=== PATIENT | male | born 1955 | race Caucasian/White ===

== ENCOUNTER 2018-03-21 10:18 | Emergency (ER) | payer OTHER ==
[~2018-03-21] VITALS: Ht 172.7 cm; Wt 91.0 kg
[~2018-03-21 10:18] MED LIST: VITA400C15 PO
[2018-03-21 10:23] VITALS: Ht 172.7 cm; Wt 91.0 kg
[2018-03-21] MEDS ORDERED: SODIUM CHLORIDE 0.9% 500ML 500 ML IV STA (10:38)
[2018-03-21] MEDS ORDERED: ONDANSETRON INJ 2 MG/ML 2 ML VIAL IV STA (10:38)
[2018-03-21] MEDS ORDERED: DiphenhydrAMINE HCL 50 MG/ML VIAL IV STA (10:38)
[2018-03-21] MEDS ORDERED: METHYLPREDNISOLONE 125 MG VIAL IV STA (10:38)
[2018-03-21] MEDS ORDERED: ACETAMINOPHEN 500 MG TAB PO STA (10:38)
[2018-03-21] MEDS ORDERED: MoRPHine SULFATE 10 MG/ML CARP/VIAL IV PRN (10:45)
[2018-03-21 11:10] LABS: BASO % 0.2 %; BASO ABS # 0.02 K/uL (0-0.2); EOS % 0.8 %; EOS ABS # 0.08 K/uL (0-0.5); HEMATOCRIT 42.9 % (42-52); HEMOGLOBIN 15.2 g/dL (14.0-18.0); IG# 0.02 K/uL (0.00-0.02); LYMPH % 20.2 %; LYMPH ABS # 2.05 K/uL (1.2-3.4); MEAN CORPUSCULAR HEMOGLOBIN 30.1 pg (25-34); MEAN CORPUSCULAR HGB CONC 35.4 g/dl (32-36); MONO % 11.9 %; MONO ABS # 1.21 K/uL (0.11-0.59); NEUT % 66.7 %; NEUT ABS # 6.75 K/uL (1.4-6.5); PLATELET COUNT 236 K/uL (130-400); RED CELL DISTRIBUTION WIDTH CV 12.1 % (11.5-14.5); WHITE BLOOD COUNT 10.13 K/uL (4.8-10.8)
[2018-03-21 11:45] LABS: CALCIUM 9.2 mg/dl (8.5-10.1); CREATININE 0.96 mg/dl (0.60-1.40); POTASSIUM 3.7 mmol/L (3.5-5.1)
--- NOTE | 2018-03-21 11:47 | DIAGNOSTIC IMAGING REPORT ---
ORBITS FOR MRI HISTORY: Pre-MRI pre-MRI screening. COMPARISON: None. FINDINGS: There are no radiopaque foreign bodies identified within the orbits. Moderate mucosal thickening of the right maxillary sinuses IMPRESSION: No radiopaque foreign bodies identified within the orbits. The above report was generated using voice recognition software. It may contain grammatical, syntax or spelling errors. Electronically signed by: Nikhil Duron M.D. 03/21/2018 11:46 AM Dictated Date/Time: 03/21/2018 11:46 AM
--- NOTE | 2018-03-21 12:12 | EMERGENCY ROOM VISIT NOTE ---
History Report prepared by Shyla: Serg Sawant Under the Supervision of: Dr. Mark Marinelli M.D. First contact with patient: 10:27 Chief Complaint: BACK PAIN Stated Complaint: BACK AND LEG PAIN History of Present Illness The patient is a 62 year old male who presents to the Emergency Room with complaints of constant, severe, lower back pain beginning a week ago. He currently rates his discomfort an 8/10 in severity. The patient states his pain radiates to his groin and is present on both sides. He reports it feels like a knife is going into his left buttock. The patient notes any type of movement greatly intensifies his discomfort to a 10/10. He states his discomfort alternates from leg to leg when he walks. The patient reports he cannot lay in one spot for more than 15 minutes. He notes when he coughs he can feel his discomfort in his back and groin. The patient reports he tried taking an 800mg ibuprofen that did not help. The patient states he has a history of a blown disk several years ago, and he did not have surgery. He reports he was given several steroid shots. 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 The patient reports he has had a cold for about 1.5 weeks. He denies urinary symptoms, diarrhea, fevers, chills, trouble moving his bowels, rash, and known tick bites. The patient does not have a PCP because he is in the process of switching insurances. Source of History: patient Onset: week ago Position: back (lower) Symptom Intensity: severe Timing: constant Modifying Factors (Worsening): movement, other (lying still for a long time) Associated Symptoms: No fevers, No chills, No diarrhea, No urinary symptoms Note: Associated symptoms: groin pain Denies: trouble moving his bowels, known tick bites Review of Systems See HPI for pertinent positives & negatives. A total of 10 systems reviewed and were otherwise negative. Past Medical & Surgical Surgical Problems: (1) History of cholecystectomy Family History Diabetes mellitus FH: heart disease FHx: gallbladder disease Hypertension Social History Smoking Status: Never Smoker Alcohol Use: none Marital Status: Housing Status: lives with family Occupation Status: employed Current/Historical Medications Scheduled Prednisone (Prednisone), 2 TAB PO DAILY Scheduled PRN Ibuprofen (Motrin), 800 MG PO Q8H PRN for Pain Oxycodone Ir (Roxicodone Ir), 1-2 TAB PO Q4H PRN for Pain Allergies Coded Allergies: Iodinated Diagnostic Agents (Unverified Adverse Reaction, Intermediate, HIVES, 03/21/18) Physical Exam Vital Signs Date Time Temp Pulse Resp B/P (MAP) Pulse Ox O2 Delivery O2 Flow Rate FiO2 03/21/18 14:04 69 18 105/59 96 Room Air 03/21/18 12:52 36.9 03/21/18 12:22 78 18 163/79 99 Room Air 03/21/18 11:07 86 03/21/18 10:23 37.9 97 18 145/74 96 Room Air Physical Exam GENERAL: Patient is in no acute distress. HEENT: No acute trauma, normocephalic atraumatic, mucous membranes moist, no nasal congestion, no scleral icterus. NECK: No stridor, no adenopathy, no meningismus, trachea is midline. LUNGS: Clear to auscultation bilaterally, no wheeze, no rhonchi, breath sounds equal. HEART: Without murmurs gallops or rubs, regular rate and rhythm. BACK: Mildly tenderness to the upper lumbar spine upon palpation. No rash. No step-off. ABDOMEN: Soft, nontender, bowel sounds positive, no hernias, no peritonitis. : No scrotal cellulitis or edema. EXTREMITIES: No cyanosis or edema, full range of motion of all the joints without pain or difficulty, no signs for acute trauma. NEUROLOGIC: Oriented x 3, no acute motor or sensory deficits, no focal weakness. 2/4 patellar and Achilles reflexes bilaterally. SKIN: No rash, no jaundice, no diaphoresis. Medical Decision & Procedures ER Provider Diagnostic Interpretation: Radiology results as stated below per my review and radiologist interpretation: LUMBAR SPINE W/O CONTRAST HISTORY: Pain. Neuropathy. Back pain TECHNIQUE: Multiplanar multisequence MRI of the lumbar spine was performed without the use of contrast. COMPARISON: None. FINDINGS: For the purpose of the report the L5-S1 disc space will be located on axial image 23 of 25. Considerable degenerative change throughout the entire lumbar region. Posterior bulging disc components based on the sagittal images from L1 through L4. Signal characteristics of the vertebral bodies are unremarkable. No evidence for compression deformity. L1-L2: Mild broad-based disc herniation. Mild impact anterior thecal sac. Neural foramina show only minimal narrowing. L2-L3: Mild broad-based disc herniation. Mild impact right anterior aspect thecal sac. Moderate narrowing right neuroforamina. Minimal narrowing left neural foramina. L3-L4: Mild broad-based disc herniation. Moderate impact anterior thecal sac. Moderate narrowing of the neuroforamina bilaterally. L4-L5: Broad-based central bulging disc with minimal impact anterior thecal sac. Moderate osteophytic narrowing right neuroforamina. L5-S1: No significant central canal or neural foraminal narrowing. IMPRESSION: 1. Considerable degenerative disc change throughout the entire lumbar region. 2. Broad-based disc herniations from L1 through L4 with minimal to mild impact upon the anterior thecal sac at all levels. 2. No major component of spinal stenosis. 3. Moderate narrowing of several neural foramina bilaterally. 4. No evidence for compression deformity. The above report was generated using voice recognition software. It may contain grammatical, syntax or spelling errors. Electronically signed by: Nikhil Duron M.D. 03/21/2018 12:28 PM Dictated Date/Time: 03/21/2018 12:24 PM ORBITS FOR MRI HISTORY: Pre-MRI pre-MRI screening. COMPARISON: None. FINDINGS: There are no radiopaque foreign bodies identified within the orbits. Moderate mucosal thickening of the right maxillary sinuses IMPRESSION: No radiopaque foreign bodies identified within the orbits. The above report was generated using voice recognition software. It may contain grammatical, syntax or spelling errors. Electronically signed by: Nikhil Duron M.D. 03/21/2018 11:46 AM Dictated Date/Time: 03/21/2018 11:46 AM ABD/PELVIS NO IV OR ORAL CONT CT DOSE: 651.75 mGy.cm HISTORY: Pain ABD PAIN, POSSIBLE OBSTRUCTION, NO CONTRAST TECHNIQUE: Multiaxial CT images of the abdomen and pelvis were performed without contrast. A dose lowering technique was utilized adhering to the principles of ALARA. COMPARISON STUDY: None. FINDINGS: Lung bases are clear. Liver spleen and pancreas are unremarkable. Prior cholecystectomy. Kidneys negative for calcification or hydronephrosis. Bowel pattern is nonobstructive. There is a normal amount of fecal material throughout the colon. No evidence for free air or pneumatosis. Bladder is midline. Normal appendix. IMPRESSION: No significant abnormality identified within the abdomen or pelvis. Prior cholecystectomy. No evidence for obstruction. The above report was generated using voice recognition software. It may contain grammatical, syntax or spelling errors. Electronically signed by: Nikhil Duron M.D. 03/21/2018 1:30 PM Dictated Date/Time: 03/21/2018 1:24 PM Laboratory Results 03/21/18 10:50 Red Blood Count 5.05, Mean Corpuscular Volume 85.0, Mean Corpuscular Hemoglobin 30.1, Mean Corpuscular Hemoglobin Concent 35.4, Mean Platelet Volume 10.0, Neutrophils (%) (Auto) 66.7, Lymphocytes (%) (Auto) 20.2, Monocytes (%) (Auto) 11.9, Eosinophils (%) (Auto) 0.8, Basophils (%) (Auto) 0.2, Neutrophils # (Auto ) 6.75, Lymphocytes # (Auto) 2.05, Monocytes # (Auto) 1.21, Eosinophils # (Auto ) 0.08, Basophils # (Auto) 0.02 03/21/18 10:50 Test 03/21/18 10:50 03/21/18 12:54 White Blood Count 10.13 K/uL (4.8-10.8) Red Blood Count 5.05 M/uL (4.7-6.1) Hemoglobin 15.2 g/dL (14.0-18.0) Hematocrit 42.9 % (42-52) Mean Corpuscular Volume 85.0 fL (80-100) Mean Corpuscular Hemoglobin 30.1 pg (25-34) Mean Corpuscular Hemoglobin Concent 35.4 g/dl (32-36) Platelet Count 236 K/uL (130-400) Mean Platelet Volume 10.0 fL (7.4-10.4) Neutrophils (%) (Auto) 66.7 % Lymphocytes (%) (Auto) 20.2 % Monocytes (%) (Auto) 11.9 % Eosinophils (%) (Auto) 0.8 % Basophils (%) (Auto) 0.2 % Neutrophils # (Auto) 6.75 K/uL (1.4-6.5) Lymphocytes # (Auto) 2.05 K/uL (1.2-3.4) Monocytes # (Auto) 1.21 K/uL (0.11-0.59) Eosinophils # (Auto) 0.08 K/uL (0-0.5) Basophils # (Auto) 0.02 K/uL (0-0.2) RDW Standard Deviation 37.0 fL (36.4-46.3) RDW Coefficient of Variation 12.1 % (11.5-14.5) Immature Granulocyte % (Auto) 0.2 % Immature Granulocyte # (Auto) 0.02 K/uL (0.00-0.02) Erythrocyte Sedimentation Rate 33 mm/hr (0-14) Anion Gap 4.0 mmol/L (3-11) Est Creatinine Clear Calc Drug Dose 88.5 ml/min Estimated GFR () 98.5 Estimated GFR (Non- 85.0 BUN/Creatinine Ratio 22.9 (10-20) Calcium Level 9.2 mg/dl (8.5-10.1) Total Bilirubin 0.6 mg/dl (0.2-1) Direct Bilirubin 0.1 mg/dl (0-0.2) Aspartate Amino Transf (AST/SGOT) 25 U/L (15-37) Alanine Aminotransferase (ALT/SGPT) 25 U/L (12-78) Alkaline Phosphatase 84 U/L (45-117) Troponin I < 0.015 ng/ml (0-0.045) C-Reactive Protein 5.99 mg/dl (0-0.29) Total Protein 8.0 gm/dl (6.4-8.2) Albumin 3.6 gm/dl (3.4-5.0) Lipase 116 U/L (73-393) Lyme Disease IgG Antibody NEG (NEG) Lyme Disease IgM Antibody NEG (NEG) Urine Color DK YELLOW Urine Appearance CLEAR (CLEAR) Urine pH 5.0 (4.5-7.5) Urine Specific [place] 1.029 (1.000-1.030) Urine Protein NEG (NEG) Urine Glucose (UA) NEG (NEG) Urine Ketones 1+ (NEG) Urine Occult Blood TRACE (NEG) Urine Nitrite NEG (NEG) Urine Bilirubin NEG (NEG) Urine Urobilinogen NEG (NEG) Urine Leukocyte Esterase NEG (NEG) Urine WBC (Auto) 1-5 /hpf (0-5) Urine RBC (Auto) 0-4 /hpf (0-4) Urine Hyaline Casts (Auto) 0 /lpf (0-5) Urine Epithelial Cells (Auto) 0-5 /lpf (0-5) Urine Bacteria (Auto) NEG (NEG) Laboratory results reviewed by me. Medications Administered Medications (Trade) Dose Ordered Sig/Damaso Route Start Time Stop Time Status Last Admin Dose Admin Ondansetron HCl (Zofran Inj) 4 mg NOW STAT IV 03/21/18 10:38 03/21/18 10:44 DC 03/21/18 10:57 4 MG Morphine Sulfate (MoRPHine SULFATE INJ) 6 mg Q15M PRN IV 03/21/18 10:45 03/21/18 15:08 DC 03/21/18 10:59 6 MG Acetaminophen (Tylenol Tab) 1,000 mg NOW STAT PO 03/21/18 10:38 03/21/18 10:44 DC 03/21/18 10:58 1,000 MG Sodium Chloride 500 ml @ 999 mls/hr Q31M STAT IV 03/21/18 10:38 03/21/18 11:08 DC 03/21/18 10:57 999 MLS/HR Lidocaine HCl (Viscous Lidocaine 2% Soln) 10 ml NOW STAT PO 03/21/18 12:55 03/21/18 12:57 DC 03/21/18 13:01 10 ML Al Hydroxide/Mg Hydroxide (Maalox Susp) 30 ml NOW STAT PO 03/21/18 12:55 03/21/18 12:57 DC 03/21/18 13:01 30 ML Prednisone (PredniSONE TAB) 60 mg NOW STAT PO 03/21/18 13:58 03/21/18 14:00 DC 03/21/18 14:07 60 MG ECG Per My Interpretation Indication: abdominal pain Rate (beats per minute): 72 Rhythm: normal sinus 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 No ST elevation or PVCs.) ED Course 1028: The patient was evaluated in room C05. A complete history and physical exam was performed. 1038: Ordered Sodium Chloride 500 ml @ 999 mls/hr IV, Acetaminophen 1000mg PO, Ondansetron HCl 4mg IV 1045: Ordered Morphine Sulfate 6mg IV 1249: I reevaluated the patient and discussed his current exam findings. He developed intermittent, severe, epigastric pain. I am adding labs and abdominal imaging. 1255: Ordered Maalox Susp 30ml PO, Lidocaine HCl 10ml PO 1354: Reevaluated the patient. Discussed results and discharge instructions: he verbalized understanding and agreement. The patient is ready for discharge after he receives his medication. 1358: Ordered Prednisone 60mg PO Medical Decision The patient is a 62 year old male who presents to the ED with complaints of lower back pain. Differential diagnoses considered include musculoskeletal pain , herniated disk, abscess, nerve impingement, UTI, electrolyte imbalance, Lyme' s Disease, viral illness, fracture. There is no leukocytosis or concerning anemia. No significant electrolyte abnormality or kidney failure. No hepatitis or pancreatitis. EKG shows a sinus rhythm, no acute ischemia. Cardiac enzyme testing 1 is not consistent with acute cardiac injury. Urinalysis does not show infection. CRP and sed rate were both somewhat elevated. Lumbar spine MRI shows disc disease with mild to moderate disease thought present, no sign of abscess or mass, no fracture. Lyme disease testing was negative. The patient received IV morphine, IV Zofran. He received a GI cocktail when he developed some epigastric stomach upset. Patient was given a dose of oral prednisone. Patient received oral Tylenol and IV saline. Patient presents with lower back pain, the pain does worsen with movement. No evidence for neurovascular compromise in the legs. He has normal reflexes bilaterally. There was no rash or sign of infection in the groin or to his lower extremities. The patient did develop some epigastric abdominal pain during his stay, I do not think this was related to the back pain. Because the pain did at some point seem severe, a CT was done, no evidence for bowel obstruction or for abscess, no evidence for aneurysm. The patient is going to be discharged with follow-up with the spinal surgeon. He will be on prednisone, Motrin and oxycodone, rest and heat were suggested. If worsening, if he develops high fever, if things are not improving, he can return for reassessment. [place] Drug Monitoring Program Search Results: patient reviewed within database, no issues identified Medication Reconcilliation Current Medication List: was personally reviewed by me Blood Pressure Screening Patient's blood pressure: Elevated blood pressure Blood pressure disposition: Elevated BP felt to be situational Impression Primary Impression: Lower back pain Additional Impressions: Lumbar disc disease Epigastric abdominal pain Scribe Attestation The scribe's documentation has been prepared under my direction and personally reviewed by me in its entirety. I confirm that the note above accurately reflects all work, treatment, procedures, and medical decision making performed by me. Departure Information Dispostion Home / Self-Care Prescriptions Oxycodone Ir (Roxicodone Ir) 5 Mg Tab 1-2 TAB PO Q4H Y for Pain, #10 TAB Prov: Mark Marinelli M.D. 03/21/18 Ibuprofen (Motrin) 800 Mg Tab 800 MG PO Q8H Y for Pain for 4 Days, #12 TAB Prov: Mark Marinelli M.D. 03/21/18 Prednisone (Prednisone) 20 Mg Tab 2 TAB PO DAILY for 6 Days, #12 TAB Prov: Mark Marinelli M.D. 03/21/18 Referrals No Doctor, Assigned (PCP) Forms HOME CARE DOCUMENTATION FORM, IMPORTANT VISIT INFORMATION Patient Instructions My [facility] Additional Instructions prednisone as directed motrin 3x per day for 4 days oxy ir 1-2 tab every 4 hours for severe pain heat to the sore areas rest no lifting set up appt with the back specialist--call friday return for fever, worsening trouble or uncontrolled pain Problem Qualifiers
--- NOTE | 2018-03-21 12:29 | DIAGNOSTIC IMAGING REPORT ---
LUMBAR SPINE W/O CONTRAST HISTORY: Pain. Neuropathy. Back pain TECHNIQUE: Multiplanar multisequence MRI of the lumbar spine was performed without the use of contrast. COMPARISON: None. FINDINGS: For the purpose of the report the L5-S1 disc space will be located on axial image 23 of 25. Considerable degenerative change throughout the entire lumbar region. Posterior bulging disc components based on the sagittal images from L1 through L4. Signal characteristics of the vertebral bodies are unremarkable. No evidence for compression deformity. L1-L2: Mild broad-based disc herniation. Mild impact anterior thecal sac. Neural foramina show only minimal narrowing. L2-L3: Mild broad-based disc herniation. Mild impact right anterior aspect thecal sac. Moderate narrowing right neuroforamina. Minimal narrowing left neural foramina. L3-L4: Mild broad-based disc herniation. Moderate impact anterior thecal sac. Moderate narrowing of the neuroforamina bilaterally. L4-L5: Broad-based central bulging disc with minimal impact anterior thecal sac. Moderate osteophytic narrowing right neuroforamina. L5-S1: No significant central canal or neural foraminal narrowing. IMPRESSION: 1. Considerable degenerative disc change throughout the entire lumbar region. 2. Broad-based disc herniations from L1 through L4 with minimal to mild impact upon the anterior thecal sac at all levels. 2. No major component of spinal stenosis. 3. Moderate narrowing of several neural foramina bilaterally. 4. No evidence for compression deformity. The above report was generated using voice recognition software. It may contain grammatical, syntax or spelling errors. Electronically signed by: Nikhil Duron M.D. 03/21/2018 12:28 PM Dictated Date/Time: 03/21/2018 12:24 PM
[2018-03-21 12:52] VITALS: TEMP 36.9
[2018-03-21] MEDS ORDERED: ALUMINUM/MAGNESIUM SUSP 30 ML UDC PO STA (12:55)
[2018-03-21] MEDS ORDERED: LIDOCAINE HCL 2% VISC SOLN 20 ML UDC PO STA (12:55)
--- NOTE | 2018-03-21 13:31 | DIAGNOSTIC IMAGING REPORT ---
ABD/PELVIS NO IV OR ORAL CONT CT DOSE: 651.75 mGy.cm HISTORY: Pain ABD PAIN, POSSIBLE OBSTRUCTION, NO CONTRAST TECHNIQUE: Multiaxial CT images of the abdomen and pelvis were performed without contrast. A dose lowering technique was utilized adhering to the principles of ALARA. COMPARISON STUDY: None. FINDINGS: Lung bases are clear. Liver spleen and pancreas are unremarkable. Prior cholecystectomy. Kidneys negative for calcification or hydronephrosis. Bowel pattern is nonobstructive. There is a normal amount of fecal material throughout the colon. No evidence for free air or pneumatosis. Bladder is midline. Normal appendix. IMPRESSION: No significant abnormality identified within the abdomen or pelvis. Prior cholecystectomy. No evidence for obstruction. The above report was generated using voice recognition software. It may contain grammatical, syntax or spelling errors. Electronically signed by: Nikhil Duron M.D. 03/21/2018 1:30 PM Dictated Date/Time: 03/21/2018 1:24 PM
[2018-03-21 13:44] LABS: ALBUMIN 3.6 gm/dl (3.4-5.0); ALKALINE PHOSPHATASE 84 U/L (45-117); ALT/SGPT 25 U/L (12-78); AST/SGOT 25 U/L (15-37); LIPASE 116 U/L (73-393)
[2018-03-21 14:04] VITALS: BP 105/59; PULSE 69; O2SAT 96
[2018-03-21] MEDS ORDERED: OXYC1TAB3 PO (14:05)
[2018-03-21] MEDS ORDERED: PRED20TA PO (14:05)
[2018-03-21] MEDS ORDERED: IBUP-1428 PO (14:05)
== END 2018-03-21 14:16 | disposition home or self-care (01) ==
LOC: C.EDB 10:20 → C.EDC 14:16
DX: M54.5 Low back pain (principal); M51.36 Other intervertebral disc degeneration, lumbar region; R10.13 Epigastric pain; Z90.49 Acquired absence of other specified parts of digestive tract; Z91.041 Radiographic dye allergy status; Z83.3 Family history of diabetes mellitus; Z82.49 Family history of ischemic heart disease and other diseases of the circulatory system